=== PATIENT | female | born 1940 | race Caucasian/White ===

== ENCOUNTER 2020-08-31 05:17 | Emergency (ER) | payer MEDICARE, OTHER ==
--- NOTE | 2020-08-31 06:48 | ERPHSYRPT ---
- History of Present Illness Time Seen by Provider: 08/31/20 05:50 Source: patient Exam Limitations: no limitations Patient Subjective Stated Complaint: Patient states " I have been having intense hand pain R/T I have what looks like a cluster of blood blisters on the lower part of my palm and top of my hand". Triage Nursing Assessment: Patient arrived to ED and ambulated back to room with steady gait and no difficulty. Patient [place] and is A/O times 4. Patient able to follow directions wihtout difficulty. Patient noted with what appears to look like a cluster of blood filled blisters to bottom of palm of hand and several blood blisters noted to top of hand and wrist. Patient states she has had no injur to area. Patient denies any trauma to area. Patient able to wiggle fingers and move hand/wrist without difficulty. Cap refill < 3 seconds. + radial pulse noted. Slight edema noted to hand. Patient denies SOB. Patient denies chest pain. Blood blisters intact with no drainage noted. Physician History: Patient is a 80-year-old female presents to our ED with complaints of painful hemorrhagic blisters to her left hand. Symptoms started approximately 2 days ago. Patient self treated with topical antibiotic however symptoms did not improve. Pain described as an ache that is localized. No radiation. Patient denies trauma. No new antibiotics or medications otherwise. No fever. No numbness tingling or weakness of the extremity. Symptoms are moderate in intensity. Palpation and movement reproduce symptoms. Patient voices no other complaints or concerns at this time. No chest pain or shortness of breath. No nausea vomiting or diaphoresis. Otherwise no rash. No diarrhea. Timing/Duration: day(s) Severity: moderate Modifying Factors: Improves With: nothing Associated Symptoms: denies symptoms Allergies/Adverse Reactions: Penicillins Allergy (Unknown, Verified 08/31/20 05:48) Home Medications: Aspirin [Aspirin EC] 81 mg PO DAILY 03/21/15 [History] Hx Tetanus, Diphtheria Vaccination/Date Given: Yes Hx Influenza Vaccination/Date Given: Yes Hx Pneumococcal Vaccination/Date Given: No Immunizations Up to Date: Yes Travel Risk - International Travel Have you traveled outside of the country in past 3 weeks: No - Coronavirus Screening Are you exhibiting any of the following symptoms?: No Close contact with a COVID-19 positive Pt in past 14-21 Days: No - Review of Systems Constitutional: No Symptoms, No Fever, No Chills Eyes: No Symptoms Ears, Nose, & Throat: No Symptoms Respiratory: No Symptoms, No Cough, No Dyspnea Cardiac: No Symptoms, No Chest Pain, No Edema, No Syncope Abdominal/Gastrointestinal: No Symptoms, No Abdominal Pain, No Nausea, No Vomiting, No Diarrhea Genitourinary Symptoms: No Symptoms, No Dysuria Musculoskeletal: No Symptoms, No Back Pain, No Neck Pain Skin: No Symptoms, No Rash Neurological: No Symptoms, No Dizziness, No Focal Weakness, No Sensory Changes Psychological: No Symptoms Endocrine: No Symptoms Hematologic/Lymphatic: No Symptoms Immunological/Allergic: No Symptoms All Other Systems: Reviewed and Negative - Past Medical History Pertinent Past Medical History: Yes Neurological History: No Pertinent History ENT History: Cataracts Cardiac History: Hypertension Respiratory History: No Pertinent History Endocrine Medical History: No Pertinent History Musculoskeletal History: No Pertinent History, Fractures GI Medical History: No Pertinent History History: No Pertinent History Psycho-Social History: No Pertinent History Female Reproductive Disorders: No Pertinent History - Past Surgical History Past Surgical History: Yes Neuro Surgical History: No Pertinent History Cardiac: No Pertinent History Respiratory: No Pertinent History Gastrointestinal: No Pertinent History Genitourinary: No Pertinent History Musculoskeletal: No Pertinent History Female Surgical History: Hysterectomy - Social History Smoking Status: Former smoker Exposure to second hand smoke: No Drug Use: none Patient Lives Alone: No - Female History Hx Last Menstrual Period: POST Hx Now: No - Nursing Vital Signs Nursing Vital Signs: Initial Vital Signs Temperature 98.3 F 08/31/20 05:40 Pulse Rate 91 H 08/31/20 05:40 Respiratory Rate 22 08/31/20 05:40 Blood Pressure 133/81 08/31/20 05:40 O2 Sat by Pulse Oximetry 96 08/31/20 05:40 Pain Scale Pain Intensity 8 - Physical Exam General Appearance: no apparent distress, alert Eye Exam: PERRL/EOMI, eyes nml inspection Ears, Nose, Throat Exam: normal ENT inspection, TMs normal, pharynx normal, moist mucous membranes Neck Exam: normal inspection, non-tender, supple, full range of motion Respiratory Exam: normal breath sounds, lungs clear, No respiratory distress Cardiovascular Exam: regular rate/rhythm, normal heart sounds, normal peripheral pulses Gastrointestinal/Abdomen Exam: soft, normal bowel sounds, No tenderness, No mass Back Exam: normal inspection, normal range of motion, No CVA tenderness, No vertebral tenderness Extremity Exam: normal inspection, normal range of motion, pelvis stable Neurologic Exam: alert, oriented x 3, cooperative, normal mood/affect, nml cerebellar function, nml station & gait, sensation nml, No motor deficits Skin Exam: normal color, warm, dry, other (Tender hemorrhagic blisters observed at the volar aspect of the left wrist particularly at the crease at the palm of the hand. The extremity is well-perfused. Compartments are soft. Cap refill less than 2 seconds. No open or draining lesions. Motor or sensory function intact.), No rash Lymphatic Exam: No adenopathy SpO2 Interpretation: normal SpO2: 96 O2 Delivery: Room Air - Course Nursing assessment & vital signs reviewed: Yes - Progress Progress: improved Progress Note: 08/31/20 06:53 This appears to be shingles. No indication for imaging studies at this time. No bony tenderness. Will treat with acyclovir. Prescription sent to patient's pharmacy. [id number] analgesics as needed. Patient agrees to follow-up with primary care doctor within 48 hours for reevaluation. Patient voices no other complaints or concerns at this time. 08/31/20 06:54 Counseled pt/family regarding: diagnosis, need for follow-up - Departure Departure Disposition: Home Clinical Impression: Shingles Condition: Stable Critical Care Time: No Referrals: MAREN LINDSEY [Primary Care Provider] - Prescriptions: Acyclovir 800 mg [Zovirax 800 mg] 800 mg PO 5XD 7 Days #35 tablet
[2020-08-31] MEDS ORDERED: TYLENOL 325 MG PO STA (06:53)
[2020-08-31] MEDS ORDERED: TYLENOL 325 MG ONE (06:55)
[2020-08-31 07:17] VITALS: BP 138/72; PULSE 81; O2SAT 95
== END 2020-08-31 07:10 | disposition home or self-care (01) ==
LOC: ED 05:17
DX: B02.9 Zoster without complications (principal); M79.642 Pain in left hand
CPT/HCPCS: 99283; A9270-GY